=== PATIENT | female | born 1985 ===

== ENCOUNTER 2016-09-07 09:43 | Emergency (ER) | payer OTHER ==
[2016-09-07 09:43] VITALS: BMI 22.6
[2016-09-07 09:56] VITALS: BP 117/69; PULSE 71; RESP 18; TEMP 98.7; O2SAT 98
[2016-09-07] MEDS ORDERED: Sodium Chloride 0.9% 1,000 ML IV STA (10:12)
[2016-09-07] MEDS ORDERED: Sodium Chloride 0.9% 1,000 ML IV SCH (10:15)
--- NOTE | 2016-09-07 10:18 | ED PDOC ---
Arrival/HPI - General Historian: Patient - History of Present Illness Time/Duration: 1 hour Symptom Onset: Sudden Symptom Course: Worsening Quality: Stabbing, Cramping Severity Level: 8 Activities at Onset: Light Context: Work <Janessa Jack - Last Filed: 09/07/16 14:38> <Migue Zuleta - Last Filed: 09/18/16 10:07> - General Chief Complaint: Abdominal Pain Time Seen by Provider: 09/07/16 09:48 - History of Present Illness Narrative History of Present Illness (Text): 09/07/16 10:14 This is a 31Y F with PMH of ectopic here for sudden supraprubic abdominal pain. She was going to work this am and suddenly had the pain is mainly in her suprapubic region and radiates down to her vagina and RLQ. She has never had this pain before. Her LMP was on 08/26 and lasted 4 days. She did have spotting 2 days ago. Otherwise, her periods have been normal and regular. She is not sure if she is , but would like to have another child. She denies fever, chills, n/v/d, numbness/tingling, CP, SOB, dysuria, hematuria, vaginal bleeding or discharge. (Janessa Jack) Past Medical History - Provider Review Nursing Documentation Reviewed: Yes - Infectious Disease Hx of Infectious Diseases: None - Cardiac Hx Cardiac Disorders: No - Pulmonary Hx Respiratory Disorders: No - Neurological Hx Neurological Disorder: No - HEENT Hx HEENT Disorder: No - Renal Hx Renal Disorder: No - Endocrine/Metabolic Hx Endocrine Disorders: No - Hematological/Oncological Hx Blood Disorders: No - Integumentary Hx Dermatological Disorder: No - Musculoskeletal/Rheumatological Hx Musculoskeletal Disorders: No - Gastrointestinal Hx Gastrointestinal Disorders: No - Genitourinary/Gynecological Other/Comment: ECTOPIC - Psychiatric Hx Psychophysiologic Disorder: No Hx Substance Use: No - Surgical History Other/Comment: R/T ECTOPIC <Janessa Jack - Last Filed: 09/07/16 14:38> Family/Social History - Physician Review Nursing Documentation Reviewed: Yes Family/Social History: Hypertension Smoking Status: Light Smoker < 10 Cigarettes Daily Hx Alcohol Use: No Hx Substance Use: No <Janessa Jack - Last Filed: 09/07/16 14:38> Allergies/Home Meds <Janessa Jack - Last Filed: 09/07/16 14:38> <Migue Zuleta - Last Filed: 09/18/16 10:07> Allergies/Adverse Reactions: Allergies Penicillins Allergy (Verified 09/11/16 12:10) RASH Home Medications: Home Meds Medication Instructions Recorded Confirmed No Known Home Med 09/09/16 09/11/16 Review of Systems - Physician Review All systems were reviewed & negative as marked: Yes - Review of Systems Constitutional: Normal. absent: Fevers Eyes: Normal. absent: Vision Changes Respiratory: Normal. absent: SOB, Cough Cardiovascular: Normal. absent: Chest Pain, Palpitations Gastrointestinal: Abdominal Pain. absent: Stool Changes, Constipation, Diarrhea , Nausea, Vomiting Genitourinary Female: Normal. absent: Dysuria, Frequency, Hematuria, Vaginal Bleeding, Vaginal Discharge Musculoskeletal: Normal. absent: Arthralgias, Back Pain Skin: Normal. absent: Rash, Pruritis Neurological: Normal. absent: Headache, Dizziness Endocrine: Normal. absent: Diaphoresis Psychiatric: Normal. absent: Anxiety, Depression <Janessa Jack - Last Filed: 09/07/16 14:38> Physical Exam Vital Signs Reviewed: Yes Temperature: Afebrile Blood Pressure: Normal Pulse: Regular Respiratory Rate: Normal Appearance: Positive for: Well-Appearing, Non-Toxic, Comfortable Pain Distress: None Mental Status: Positive for: Alert and Oriented X 3 - Systems Exam Head: Present: Atraumatic, Normocephalic Pupils: Present: PERRL Extroacular Muscles: Present: EOMI Conjunctiva: Present: Normal Mouth: Present: Moist Mucous Membranes Neck: Present: Normal Range of Motion Respiratory/Chest: Present: Clear to Auscultation, Good Air Exchange. No: Respiratory Distress, Accessory Muscle Use Cardiovascular: Present: Regular Rate and Rhythm, Normal S1, S2. No: Murmurs Abdomen: Present: Tenderness (suprapubic and RLQ), Normal Bowel Sounds. No: Distention, Peritoneal Signs, Rebound, Guarding, Mass/Organomegaly Genitourinary/Pelvic Exam: Present: Normal External Genitalia, Vaginal Bleeding , Other (cervical os open ). No: Vaginal Lesions, Adenexal Tenderness, Adenexal Mass, Cervical Motion Tendernes Back: Present: Normal Inspection Upper Extremity: Present: Normal Inspection. No: Cyanosis, Edema Lower Extremity: Present: Normal Inspection. No: Edema Neurological: Present: GCS=15, CN II-XII Intact, Speech Normal Skin: Present: Warm, Dry, Normal Color. No: Rashes Psychiatric: Present: Alert, Oriented x 3, Normal Insight, Normal Concentration <Janessa Jack - Last Filed: 09/07/16 14:38> <Migue Zuleta - Last Filed: 09/18/16 10:07> Vital Signs Temp Pulse Resp BP Pulse Ox 09/07/16 09:51 98.7 F 71 18 117/69 98 Medical Decision Making Re-evaluation Time: 11:03 Reassessment Condition: Unchanged - Lab Interpretations I have reviewed the lab results: Yes Interpretation: Abnormal lab values (B-HCG elevated) - RAD Interpretation Company Secretary: Radiologist <Janessa Jack - Last Filed: 09/07/16 14:38> <Migue Zuleta - Last Filed: 09/18/16 10:07> ED Course and Treatment: 09/07/16 10:20 Impression: This is a 31Y F with PMH of ectopic here for sudden suprapubic abdominal pain. Denies vaginal or urinary symptoms, periods have been regular. Differential Diagnosis included but are not limited to: ectopic vs. miscarriage vs. kidney stone Plan: -- CBC, CMP, Urine Hcg, U/A, Uculture, HCG quant -- NS@100 -- Transvaginal U/S -- Reassess and disposition Prior Visits: Notes and results from previous visits were reviewed. 09/07/16 11:04 Progress Note: Spoke with patient about ultrasound results. Patient reports she has began to have vaginal bleeding, but denies clots. 09/07/16 14:51 Spoke with affirmative action specialist cat dog or other pet groomer Dr. Zuniga who suggests that the patient follow up at a [facility] facility with [facility] services in 2 days to repeat B-Hcg. Re-evaluation: Discussed results and plan with patient. Patient understands results and is agreeable with plan. All questions answered. (Janessa Jack) Patient Seen With Resident: In agreement with resident note which contains more details about the patient. Patient was seen and evaluated with resident. Came up with plan and treatment together. Patient has a history of ectopic , presents to the emergency department with spotting and pain, and positive hcg. Urine HCG positive. US showed no gestational sac. Pending serum HCG. pt will need follow up in 48 hours [facility] 09/18/16 10:06 (MerlynMigue Mariangel) - Lab Interpretations Lab Results: 09/07/16 10:20 09/07/16 10:20 Lab Results 09/07/16 13:15: Blood Type Confirm B POSITIVE 09/07/16 13:00: Urine Color Light yellow, Urine Appearance Clear, Urine pH 6.0, Ur Specific [place] 1.020, Urine Protein Negative, Urine Glucose (UA) Negative, Urine Ketones Negative, Urine Blood Negative, Urine Nitrate Negative, Urine Bilirubin Negative, Urine Urobilinogen 0.2, Ur Leukocyte Esterase Negative 09/07/16 10:20: Beta HCG, Quant 1571.40 H 09/07/16 10:20: Sodium 135, Potassium 4.0, Chloride 103, Carbon Dioxide 24, Anion Gap 12, BUN 11, Creatinine 0.6, Est GFR ( Amer) > 60, Est GFR (Non- Af Amer) > 60, Random Glucose 97, Calcium 9.1, Total Bilirubin 0.5, AST 29, ALT 30, Alkaline Phosphatase 50, Total Protein 7.8, Albumin 4.4, Globulin 3.4, Albumin/Globulin Ratio 1.3 09/07/16 10:20: WBC 4.1 L, RBC 3.92, Hgb 12.8, Hct 37.1, MCV 94.6, MCH 32.7, MCHC 34.5, RDW 12.1, Plt Count 254, MPV 10.6 09/07/16 10:00: Blood Type B POSITIVE, Antibody Screen Negative, BBK History Checked No verified bt - RAD Interpretation Narrative RAD Interpretations (Text): 09/07/16 11:03 Transvaginal U/S showed no gestational sac seen. R complex adnexal cyst. L simple adnexal cyst. Please see full report for more details. (Janessa Jack ) Radiology Orders: 09/07/16 10:10 OB TRANSVAGINAL [US] Stat - Medication Orders Current Medication Orders: Discontinued Medications Sodium Chloride (Sodium Chloride 0.9%) 1,000 mls @ 100 mls/hr IV .Q10H BIPIN Sodium Chloride (Sodium Chloride 0.9%) 1,000 mls @ 999 mls/hr IV .Q1H1M STA Stop: 09/07/16 11:12 Last Admin: 09/07/16 10:55 Dose: 999 mls/hr Morphine Sulfate (Morphine) 2 mg IVP STAT STA Stop: 09/07/16 11:04 Last Admin: 09/07/16 11:05 Dose: 2 mg <Janessa Jack - Last Filed: 09/07/16 14:38> - Scribe Statement The provider has reviewed the documentation as recorded by the Scribe <Migue Zuleta - Last Filed: 09/18/16 10:07> - Scribe Statement Jeremiah Dean Provider Scribe Attestation: All medical record entries made by the Scribe were at my direction and personally dictated by me. I have reviewed the chart and agree that the record accurately reflects my personal performance of the history, physical exam, medical decision making, and the department course for this patient. I have also personally directed, reviewed, and agree with the discharge instructions and disposition. (Migue Zuleta) Disposition/Present on Arrival - Present on Arrival Any Indicators Present on Arrival: No History of DVT/PE: No History of Uncontrolled Diabetes: No Urinary Catheter: No History of Decub. Ulcer: No History Surgical Site Infection Following: None - Disposition Have Diagnosis and Disposition been Completed?: Yes Disposition Time: 14:39 Patient Plan: Discharge <Janessa Jack - Last Filed: 09/07/16 14:38> <Migue Zuleta - Last Filed: 09/18/16 10:07> - Disposition Diagnosis: , Vaginal bleeding Disposition: HOME/ ROUTINE Condition: FAIR Discharge Instructions (ExitCare): Threatened Miscarriage (ED), (ED) Print Language: ICELANDIC Additional Instructions: Mrs. Zamora, thank you for letting us take care of you today. Your provider was Dr. Jack. You were treated for and vaginal bleeding. The emergency medical care you received today was directed at your acute symptoms. If you were prescribed any medication, please fill it and take as directed. It may take several days for your symptoms to resolve. Return to the Emergency Department if your symptoms worsen, do not improve, or if you have any other problems. Please contact your doctor or call one of the physicians/clinics you have been referred to that are listed on the Patient Visit Information form that is included in your discharge packet. Bring any paperwork you were given at discharge with you along with any medications you are taking to your follow up visit. Our treatment cannot replace ongoing medical care by a primary care provider (PCP) outside of the emergency department. Thank you for allowing the [facility] team to be part of your care today. If you had a blood, urine, or wound culture: It will take several days for the results, if any change in treatment is needed we will contact you. -- Please Follow up with [facility] in 2 days for repeat quantitative B-Hcg and possible repeat transvaginal ultrasound. -- Please follow up with PMD and [employer] within the next few days. Referrals: Gris Zuleta MD [Primary Care Provider] - Follow up with primary [facility] [Outside] - [facility] with [facility] [Outside] - Follow up with primary Flaca Zuniga MD [Staff Provider] - Follow up with primary Forms: WORK NOTE
[2016-09-07 10:27] LABS: HEMATOCRIT 37.1 % (36.0-48.0); MEAN CELL VOLUME 94.6 fL (80.0-105.0); MEAN CORPUSCULAR HEMOGLOBIN 32.7 pg (25.0-35.0); MEAN CORPUSCULAR HGB CONC 34.5 g/dl (31.0-37.0); MEAN PLATELET VOLUME 10.6 fl (7.0-11.0); RED CELL DISTRIBUTION WIDTH 12.1 % (11.5-14.5); WHITE BLOOD COUNT 4.1 10^3/ul (4.5-11.0)
--- NOTE | 2016-09-07 11:01 | US ---
HISTORY: first trimester rule out ectopic History of prior ectopic gestations. COMPARISON: None TECHNIQUE: Standard protocol for this study/examination. FINDINGS: UTERUS: Measures 4.1 x 7.9 cm. Normal in size and appearance. No fibroid or other mass lesion seen. ENDOMETRIUM: Measures 11.8 mm in diameter. No ultrasound findings to suggest gestational sac, fluid, debris, mass or polyp or other pathologic process within the endometrium. CERVIX: No cervical abnormality identified. RIGHT OVARY: Measures 3.8 x 4.6 x 5 cm. No solid mass. Normal flow. Thick-walled irregular cyst measuring 3.8 x 4.6 cm LEFT OVARY: Measures 3.9 x 4.6 cm. No solid mass. Normal flow. Cysts measuring 3 x 3.7 cm. FREE FLUID: Trace free fluid identified in the pelvis/cul de sac. OTHER FINDINGS: None. IMPRESSION: No visible intrauterine gestation, gestational sac. Complex cyst right adnexa. Simple cyst left adnexa.
[2016-09-07] MEDS ORDERED: Morphine 2 mg/ml ISec IVP STA (11:03)
[2016-09-07 14:16] LABS: ALB/GLOB RATIO 1.3 (1.1-1.8); ALKALINE PHOSPHATASE 50 U/L (38-133); ALT/SGPT 30 U/L (7-56); AST/SGOT 29 U/L (15-39); BILIRUBIN,TOTAL 0.5 mg/dL (0.2-1.3); BLOOD UREA NITROGEN 11 mg/dL (7-21); CALCIUM 9.1 mg/dL (8.4-10.5); CARBON DIOXIDE 24 mmol/L (21-33); CHLORIDE 103 mmol/L (98-107); GFR AFRICAN-AMERICAN > 60; GLUCOSE,RANDOM 97 mg/dL (70-110); SODIUM 135 mmol/L (132-148); TOTAL PROTEIN 7.8 g/dL (5.8-8.3)
[2016-09-07 14:38] LABS: URINE APPEARANCE CLEAR (CLEAR); URINE BILIRUBIN NEGATIVE (NEGATIVE); URINE BLOOD NEGATIVE (NEGATIVE); URINE COLOR LIGHT YELLOW (YELLOW); URINE GLUCOSE (UA) NEGATIVE (NEGATIVE); URINE KETONE NEGATIVE (NEGATIVE); URINE LEUKOCYTE ESTERASE NEGATIVE Leu/uL (NEGATIVE); URINE PROTEIN NEGATIVE mg/dL (<30 mg/dL); URINE UROBILINOGEN 0.2 E.U./dL (<1 E.U./dL)
== END 2016-09-07 15:00 | disposition home or self-care (01) ==
LOC: ED 09:43
DX: O46.90 Antepartum hemorrhage, unspecified, unspecified trimester (principal); Z3A.00 Weeks of gestation of pregnancy not specified
CPT/HCPCS: 76817; 80053; 81003; 84702; 85027; 86850; 86900; 96374; 99283; J2270; J7040